=== PATIENT | female | born 1995 | race Caucasian/White ===

== ENCOUNTER 2018-10-30 11:12 | Inpatient (IN) ==
[~2018-10-30 11:12] MED LIST: *HR* Nalbuphine 10 MG/ML AMPUL IVP PRN; Famotidine 20 MG/2 ML VIAL IVP PRN; Metoclopramide 10 MG/2 ML VIAL IVP PRN; Naloxone 0.4 MG/ML INJ IVP PRN; Ondansetron 4 MG/2 ML VIAL IVP PRN
[2018-10-30] MEDS ORDERED: Ringers Solution, Lactated 1,000 ML IVC SCH (11:15)
[2018-10-30] MEDS ORDERED: miSOPROStol 25 MCG TABLET PO ONE (11:30)
[2018-10-30 11:56] LABS: Basophils # 0.1 K/mcL (0.0-0.2); Basophils % 0.7 %; Eosinophils # 0.1 K/mcL (0.0-0.6); Hematocrit 36.7 % (35.3-44.9); Hemoglobin 12.2 g/dL (11.5-15.4); Immature Granulocytes % 1.9 % (0-4); Lymphocytes % 16.2 %; Mean Corpuscular HGB Conc 33.2 g/dL (31.6-35.5); Mean Corpuscular Hemoglobin 31.6 pg (28.0-33.3); Mean Corpuscular Volume 95.1 fL (83.0-100.0); Mean Platelet Volume 11.3 fL (9.4-12.4); Monocytes # 0.7 K/mcL (0.0-1.3); Monocytes % 5.3 %; Neutrophils # 9.4 K/mcL (1.6-8.9); Platelet Count 141 K/mcL (140-400); Red Blood Count 3.86 M/mcL (3.82-4.97); Red Cell Distribution Width 13.3 % (11.5-14.5); Segmented Neutrophils % 74.9 %; White Blood Count 12.5 K/mcL (4.3-11.1)
--- NOTE | 2018-10-30 11:57 | OB/GYN History & Physical ---
Date of Encounter: 10/30/18 Time of Encounter: 11:44 Assessment and Plan (1) 38 weeks gestation of Current visit: Yes Status: Acute Patient is admitted for delivery (2) SROM (spontaneous rupture of membranes) Current visit: Yes Status: Acute Admitted for Delivery POC discussed with patient and her Dr. Leary aware of POC and her conventional mortgage underwriter if needed History of Present Illness Chief complaint: SROM HPI: Ms. Lord is a 23 year old female @ 38w4d presents to labor and delivery with c/o SROM at 0900 this morning. Patient denies any contractions, LOF or VB. Patient receives care with Dr. Gregorio. Patient denies any complications with current . Patient reports GDM with last . Blood type: O Negative Rubella: Immune Hep B: nonreactive GBS: Negative Past Med Surg Social Fam HX - Past Medical History Source: patient Medical history: non-contributory Additional medical history: previous miscarriage Psychiatric history: depression - Past Surgical History Additional surgical history: tubes in ears - Social History Smoking Status: Never smoker Smokeless Tobacco Status: No Alcohol use: none Drug use: none Current living situation: Home - Independent Activity Level: Independent ambulation Recent Out of Country Travel Within the Last 8 Weeks: No Exposure or Possible Exposure to Illness During Travel: No Obstetrical History - Pregnancies : 4 Para: 1 Term: 1 : 0 Ab's: 2 Livin Medications and Allergies Acetaminophen [Tylenol] 325 mg PO Q6HR 03/21/18 [History] Pnv#75/Iron Fum/FA/Om3/Dha/Epa [Daily Combo Pack] 1 each PO DAILY 03/21/18 [History] Allergy/AdvReac Type Severity Reaction Status Date / Time vancomycin AdvReac Swelling Verified 03/21/18 08:43 of Lip/Tongue/Throat Review of System OB - Constitutional Constitutional ROS IM: no chills, no fever(s), no headache(s) - Cardiovascular Cardiovascular: no chest pain, no edema, no lightheadedness, no pedal edema, no rapid heart rate, no syncope - Respiratory Respiratory: no cough, no dyspnea - Gastrointestinal Gastrointestinal: no abdominal pain, no constipation, no cramping, no diarrhea, no heartburn, no nausea, no vomiting - Genitourinary Genitourinary: vaginal discharge (per HPI, Large gush at 0900), no abnormal vaginal bleeding, no dysuria, no flank pain, no urinary hesitancy, no urinary incontinence, no vaginal dryness, no vaginal odor, no vaginal pruritis Exam - Constitutional Constitutional: well developed, well nourished, no acute distress, average body habitus - HEENT HEENT: Normocephaly, Mucus Membranes Moist - Neck Neck exam: full ROM, supple - Lungs Respiratory exam: CTAB - Cardiovascular Cardiovascular exam: RRR, +S1, +S2 - Abdomen Abdomen: Present: bowel sounds normal, gravid, non tender - Extremities Extremities exam: full ROM, normal capillary refill, normal inspection Deep Tendon Reflex Grade: 2+ Normal - Cervix Dilation: 1 (1.5 per RN) Effacement: 70 Station: -2 - Uterus Uterus exam: Present: normal size, normal contour - Anus/Rectum Anus/Rectum: Present: normal perianal skin - Comments Comments: FHR 135 bpm moderate variability +15x15 accels no decels noted. Irregular contractions noted. Cat. 1 tracing Results All other labs normal. - VTE Reasons for not Prescribing Prophylaxis: Treatment not Indicated - Low risk for VTE
[2018-10-30 12:05] LABS: Amphetamine Screen,Urine Negative ng/mL (Cutoff=1000); Barbiturate Screen,Urine Negative ng/mL (Cutoff=200); Benzodiazepines Screen,Urine Negative ng/mL (Cutoff=200); Cannabinoid Screen,Urine Negative ng/mL (Cutoff = 50); Cocaine Screen,Urine Negative ng/mL (Cutoff= 300); Opiate Screen,Urine Negative ng/mL (Cutoff=300); Phencyclidine Screen,Urine Negative ng/mL (Cutoff=25)
[2018-10-30 15:18] LABS: Creatinine,Urine 79 mg/dL
[2018-10-30 15:21] LABS: Alanine Aminotransferase 12 Units/L (7-52); Aspartate Amino Transferase 15 Units/L (13-39); BUN/Creatinine Ratio 14 (6-26); Blood Urea Nitrogen 11 mg/dL (6-20); Lactate Dehydrogenase 198 Units/L (140-271); Uric Acid 4.5 mg/dL (2.3-7.6); eGFR For African Americans > 60 (> 60); eGFR For Non-African Americans > 60 (> 60)
--- NOTE | 2018-10-30 16:40 | OB Labor Progress Note ---
Date of Encounter: 10/30/18 Time of Encounter: 16:37 Labor Progress Note - Subjective Subjective: Patient doing well. Patient reports contractions are getting stronger and closer together. - Cervix Cervix: 5/90/-1 - Heart Tones Heart Tones: 125 bpm moderate variability +15x15 accels no decels noted. Cat. [address] - [place]: 3-4 min apart - Interventions Interventions: SVE, discussed POC with patient. - Plan Physician notified: No Plan: Continue labor management Patient may have Nubain or epidural when desires
[2018-10-30] MEDS ORDERED: Oxytocin 20 units/ LR 1000 mL 20 UNIT/1,000 ML BAG IVC ONE ×2 (18:41→21:36)
[2018-10-30] MEDS ORDERED: Lidocaine 1% 20 ML MDV INFILT PRN (18:48)
[2018-10-30] MEDS ORDERED: Epidural Premix (fent/bupiv) 0 ML EP ONE (18:59)
[2018-10-30] MEDS ORDERED: *HR* FentaNYL (PF) 100 MCG/2 ML VIAL ONE (19:00)
[2018-10-30] MEDS ORDERED: Ropivacaine/PF 0.2% 20 ML VIAL EP ONE (19:21)
[2018-10-30] MEDS ORDERED: EPHEDrine 50 MG/ML VIAL IVP PRN (19:21)
[2018-10-30] MEDS ORDERED: *HR* FentaNYL (PF) 100 MCG/2 ML VIAL EP ONE (19:21)
[2018-10-30] MEDS ORDERED: Ondansetron 4 MG/2 ML VIAL IVP PRN (19:21)
[2018-10-30] MEDS ORDERED: Naloxone 0.4 MG/ML INJ IVP PRN (19:21)
--- NOTE | 2018-10-30 19:25 | Anesthesia Evaluation PreOp ---
Date of Encounter: 10/30/18 Time of Encounter: 16:57 - Past History Planned Operation: RODNEY Cardiac History: Denies any Significant Hx Pulmonary History: Denies Any Significant HX MANUFACTURING ENGINEER CHIEF History: Denies Any Significant HX Other Medical History: Denies Any Significant HX Anesthesia History: No Prior Anesthetic Complications, Past Anesthesia (Ear tube placement, age 7) : Yes Alcohol Use: none Drug use: none Medications and Allergies Pnv#75/Iron Fum/FA/Om3/Dha/Epa [Daily Combo Pack] 1 each PO DAILY 03/21/18 [History] Loratadine [Claritin] 10 mg PO DAILY 10/30/18 [History] Allergy/AdvReac Type Severity Reaction Status Date / Time vancomycin AdvReac Swelling Verified 03/21/18 08:43 of Lip/Tongue/Throat - Meds/Allergy Pre-op Review Medications Reviewed: Yes Allergies Reviewed: Yes Beta Blockers on Current Med List: No Anesthesia Results - Labs 10/30/18 11:35 10/30/18 11:35 Anesthesia Exam BP 150/62 P 99 R 22 T98.3 Height: 5'4" Weight: 102.3kg NPO (# of Hours): 12 Pain Scale: 9 Pain Scale Used: Numeric (1 - 10) - HEENT Pupil (Motor): Pupils equal Mallampati: II Teeth: Normal Oral Opening: Greater than 3 - MANUFACTURING ENGINEER CHIEF LOC: Oriented MANUFACTURING ENGINEER CHIEF Motor: Normal RUE, Normal LUE, Normal RLE, Normal LLE, Normal Face MANUFACTURING ENGINEER CHIEF Sensory: Normal: RUE, LUE, RLE, LLE, Face - Cardiac Rhythm: Regular Murmur: None JVD: No Carotid Bruit: No - Pulmonary Breath Sounds: bilateral Clear Respiratory Effort: Symmetrical Anesthesia Assess/Plan ASA Score: 2 Level of consciousness: Cooperative, Oriented, Tranquil Anesthetic Plan: Epidural Autologous Blood: No Monitoring Plan: Standard Monitors Recovery Plan: Other
[2018-10-30] MEDS ORDERED: Epidural Premix (fent/bupiv) 110 ML EP SCH (19:30)
--- NOTE | 2018-10-30 19:33 | Anesthesia Procedures ---
Date of Encounter: 10/30/18 Time of Encounter: 17:00 Procedures: Anesthesia - Epidural/Spinal Patient ID/Chart reviewed: Yes Patient examined: Yes OB Eval: Gestational age: 38.4 OB Eval: : 4 OB Eval: Hx Para: 1 OB Eval: Dilated at (cm): 8 OB Eval: Contractions: Non-stressed pattern Consent Obtained: Yes Supplemental Oxygen: None/Room Air Site Prep: Aseptic Technique, Sterile prep and drape, Povidone-Iodine 1% Patient position: upright Local Anesthetic: Lidocaine 1% Amount of Local Anesthetic used: 3 Touhy Needle Gauge: 18 Touhy Needle Depth (cm): 7 Catheter Depth at Skin (cm): 14 Test Dose (1.5% Lido + Epi): Volume given (mls): 3 Test Dose Result: Negative Loading Dose: Fentanyl (mcg): 100 Loading Dose: Other: Ropivicaine 0.2% 5ml, NS 3ml Loading Dose Administered: Thru Catheter Infusion Med: 0.125% Bupivacaine w/ 2 mcg/ml Fentanyl Infusion Rate (mls/hr): [address]: Tegaderm, Tape Interspace Used: L3-L4 Loss of Resistance (LUCINDA): Yes Blood: No CSF: No Paresthesia: No Procedure: RODNEY placed 1st pass in upright position. LUCINDA achieved with normal saline. Catheter threaded with ease to 14cm. Bolus administered, and patient stated "baby is coming". Pt laid supine and delivered baby per [place] cannon. Pt vital signs stable. Baby delivered with stable vital signs. Vitals + FHT's: 1902 BP 146/87 P 78 R 22 1910 BP 146/86 P 79 R 20 FHT 120 on delivery
--- NOTE | 2018-10-30 19:51 | OB/GYN Procedure Note ---
Delivery - Delivery Date: 10/30/18 Provider: Tiffany Pantoja Intrapartum events: none Delivery induction: none Delivery augmentation: cytotec Delivery monitor: external FHT, external uterine Anesthesia: epidural (pt delivered right after bolus) Quantitated Blood Loss: 50 - (s) Infant A Infant Delivery Date: 10/30/18 Delivery Time: 19:12 Presentation: vertex Position: NEIDA Route of delivery: Gender: Female Viability: Viable Pounds: 7 Ounces: 12 at 1 minute: 7 at 5 mins: 9 Shoulder Dystocia: not encountered Specimens collected: cord blood Placenta: spontaneous Cord: nuchal cord (x1), 3 umbilical vessels, delivered through nuchal - Repair Episiotomy: none Laceration Description: None - Complications Delivery complications: none - Disposition Mom disposition: stable in LDR disposition: stable in LDR - Comments Comments: Called to LDR. Patient sitting up for epidural placement and states "baby is coming" patient was laid down and the infant was . Under maternal effort patient delivered spontaneously over an intact perineum. A tight nuchal was noted and delivered through it. No meconium or shoulder dystocia was encountered. Infant was placed on maternal abdomen. Cord was clamped and cut after pulsations ceased. Cord blood was collected. remained skin to skin. Placenta delivered spontaneously and intact. EBL 50cc, Apgars 7/9. Pericare provided. All counts correct. Both Mother and infant stable in LDR for 2 hour recovery.
[2018-10-30] MEDS ORDERED: Oxytocin 20 units/ LR 1000 mL 20 UNIT/1,000 ML BAG IVC SCH (22:02)
[2018-10-30] MEDS ORDERED: Benzocaine/Menthol 56 GM AEROSOL SPRAY TP PRN (22:02)
[2018-10-30] MEDS ORDERED: Rho Immune Globulin 1,500 UNIT SYRINGE IM PRN (22:02)
[2018-10-30] MEDS ORDERED: Lanolin 7 G OINT...G. TP PRN (22:02)
[2018-10-30] MEDS ORDERED: Acetaminophen 325 MG TABLET PO PRN (22:02)
[2018-10-31] MEDS: Ibuprofen 600 MG TABLET PO PRN ×2 (06:56→15:06)
[2018-10-31 07:59] VITALS: BP 121/77
[2018-10-31] MEDS ORDERED: Prenatal Vit/FA 1 EACH TABLET PO SCH (09:00)
--- NOTE | 2018-10-31 11:29 | Discharge Summary ---
Date of Encounter: 10/31/18 Time of Encounter: 10:57 - Discharge Diagnosis (1) Vaginal delivery Priority: Primary Status: Acute Comments: Patient meeting day one milestones. Pain well-controlled with prescribed medications. Voiding without difficulty, tolerating regular diet, bleeding light. No bowel movement yet. Anticipate discharge tonight (2) Breast feeding status of mother Priority: Secondary Status: Acute Comments: support as needed. Patient states she already has a breast pump - Discharge Medications Prescriptions: New Acetaminophen [Tylenol] 650 mg PO Q6H PRN tablet PRN Reason: Mild Pain Ibuprofen [Motrin] 600 mg PO Q6H PRN #60 tablet PRN Reason: Cramping Benzocaine/Menthol [place] [Dermoplast [place]] 1 appl TP QID PRN aerosol PRN Reason: See Comments Docusate [Colace] 100 mg PO BID capsule Lanolin [Lansinoh] 1 appl TP TID PRN oint...g. PRN Reason: Sore Nipples Continued Pnv#75/Iron Fum/FA/Om3/Dha/Epa [Daily Combo Pack] 1 each PO DAILY Loratadine [Claritin] 10 mg PO DAILY Home Medications: Pnv#75/Iron Fum/FA/Om3/Dha/Epa [Daily Combo Pack] 1 each PO DAILY 03/21/18 [History] Loratadine [Claritin] 10 mg PO DAILY 10/30/18 [History] Acetaminophen [Tylenol] 650 mg PO Q6H PRN tablet 10/31/18 [Rx] Benzocaine/Menthol [place] [Dermoplast [place]] 1 appl TP QID PRN aerosol 10/31/18 [Rx] Docusate [Colace] 100 mg PO BID capsule 10/31/18 [Rx] Ibuprofen [Motrin] 600 mg PO Q6H PRN #60 tablet 10/31/18 [Rx] Lanolin [Lansinoh] 1 appl TP TID PRN oint...g. 10/31/18 [Rx] Allergies/Adverse Reactions: Allergy/AdvReac Type Severity Reaction Status Date / Time vancomycin AdvReac Swelling Verified 03/21/18 08:43 of Lip/Tongue/Throat Data Procedures and tests throughout hospitalization: Laboratory Tests 10/30/18 10/30/18 10/30/18 11:35 11:35 11:35 WBC 12.5 H RBC 3.86 Hgb 12.2 Hct 36.7 MCV 95.1 MCH 31.6 MCHC 33.2 RDW 13.3 Plt Count 141 MPV 11.3 Immature Gran % 1.9 Seg Neutrophils % 74.9 Lymphocytes % 16.2 Monocytes % 5.3 Eosinophils % 1.0 Basophils % 0.7 Neutrophils # 9.4 H Lymphocytes # 2.0 Monocytes # 0.7 Eosinophils # 0.1 Basophils # 0.1 BUN 11 Creatinine 0.77 Est GFR ( Amer) > 60 Est GFR (Non-Af Amer) > 60 BUN/Creatinine Ratio 14 Uric Acid 4.5 AST 15 ALT 12 Lactate Dehydrogenase 198 Urine Creatinine 79 Protein/Creatinin Ratio 0.30 H Urine Total Protein 24 H Urine Opiates Screen Negative Ur Buprenorphine Scrn Negative Ur Barbiturates Screen Negative Ur Phencyclidine Scrn Negative Ur Amphetamines Screen Negative U Benzodiazepines Scrn Negative Urine Cocaine Screen Negative U Marijuana (THC) Screen Negative Ur Drug Screen Interp See Below Screen Baby's Blood Type Mother's Blood Type Rhogam Indicated Rhogam Req for Mother 10/30/18 19:45 WBC RBC Hgb Hct MCV MCH MCHC RDW Plt Count MPV Immature Gran % Seg Neutrophils % Lymphocytes % Monocytes % Eosinophils % Basophils % Neutrophils # Lymphocytes # Monocytes # Eosinophils # Basophils # BUN Creatinine Est GFR ( Amer) Est GFR (Non-Af Amer) BUN/Creatinine Ratio Uric Acid AST ALT Lactate Dehydrogenase Urine Creatinine Protein/Creatinin Ratio Urine Total Protein Urine Opiates Screen Ur Buprenorphine Scrn Ur Barbiturates Screen Ur Phencyclidine Scrn Ur Amphetamines Screen U Benzodiazepines Scrn Urine Cocaine Screen U Marijuana (THC) Screen Ur Drug Screen Interp Screen NEGATIVE Baby's Blood Type A RH POSITIVE Mother's Blood Type O RH NEGATIVE Rhogam Indicated YES Rhogam Req for Mother 1 Labs on day of discharge: Labs from last 24 hours 10/30/18 10/30/18 10/30/18 19:45 11:35 11:35 WBC 12.5 H RBC 3.86 Hgb 12.2 Hct 36.7 MCV 95.1 MCH 31.6 MCHC 33.2 RDW 13.3 Plt Count 141 MPV 11.3 Immature Gran % 1.9 Seg Neutrophils % 74.9 Lymphocytes % 16.2 Monocytes % 5.3 Eosinophils % 1.0 Basophils % 0.7 Neutrophils # 9.4 H Lymphocytes # 2.0 Monocytes # 0.7 Eosinophils # 0.1 Basophils # 0.1 BUN 11 Creatinine 0.77 Est GFR ( Amer) > 60 Est GFR (Non-Af Amer) > 60 BUN/Creatinine Ratio 14 Uric Acid 4.5 AST 15 ALT 12 Lactate Dehydrogenase 198 Urine Creatinine Protein/Creatinin Ratio Urine Total Protein Urine Opiates Screen Ur Buprenorphine Scrn Ur Barbiturates Screen Ur Phencyclidine Scrn Ur Amphetamines Screen U Benzodiazepines Scrn Urine Cocaine Screen U Marijuana (THC) Screen Ur Drug Screen Interp Screen NEGATIVE Baby's Blood Type A RH POSITIVE Mother's Blood Type O RH NEGATIVE Rhogam Indicated YES Rhogam Req for Mother 1 10/30/18 11:35 WBC RBC Hgb Hct MCV MCH MCHC RDW Plt Count MPV Immature Gran % Seg Neutrophils % Lymphocytes % Monocytes % Eosinophils % Basophils % Neutrophils # Lymphocytes # Monocytes # Eosinophils # Basophils # BUN Creatinine Est GFR ( Amer) Est GFR (Non-Af Amer) BUN/Creatinine Ratio Uric Acid AST ALT Lactate Dehydrogenase Urine Creatinine 79 Protein/Creatinin Ratio 0.30 H Urine Total Protein 24 H Urine Opiates Screen Negative Ur Buprenorphine Scrn Negative Ur Barbiturates Screen Negative Ur Phencyclidine Scrn Negative Ur Amphetamines Screen Negative U Benzodiazepines Scrn Negative Urine Cocaine Screen Negative U Marijuana (THC) Screen Negative Ur Drug Screen Interp See Below Screen Baby's Blood Type Mother's Blood Type Rhogam Indicated Rhogam Req for Mother Date of admission: 10/30/18 11:12 Primary care physician: Mac Miranda MD Consults: 10/30/18 22:02 Consult to [employer] [CONS] Routine Comment: Vaginal delivery, consult needed Discharging clinician: Eileen Phillips Anticipated date of discharge: 10/31/18 - Patient Status Disposition: Home, Self-Care Condition: Good Functional capacity at discharge: independent ambulation Overall status at discharge: patient is progressing back to baseline - Discharge Instructions Follow Up With: Mac Miranda MD [Primary Care Provider] - Bright Gregorio MD [Partnered Physician] - - Diet and Activity Activity: resume usual activities as tolerated Diet: regular diet Hospital Course Episiotomy: none Laceration: none Other procedures: none complications: none Discharge diagnosis: IUP at term delivered baby: female Hospital course: Delivery Date: 10/30/18 Provider: Tiffany Pantoja Intrapartum events: none Delivery induction: none Delivery augmentation: cytotec Delivery monitor: external FHT, external uterine Anesthesia: epidural (pt delivered right after bolus) Quantitated Blood Loss: 50 - Infant (s) Infant A Infant Delivery Date: 10/30/18 Infant Delivery Time: 19:12 Presentation: vertex Position: NEIDA Route of delivery: Gender: Female Viability: Viable Pounds: 7 Ounces: 12 at 1 minute: 7 at 5 mins: 9 Shoulder Dystocia: not encountered Specimens collected: cord blood Placenta: spontaneous Cord: nuchal cord (x1), 3 umbilical vessels, delivered through nuchal - Repair Episiotomy: none Laceration Description: None - Complications Delivery complications: none - Disposition Mom disposition: stable in LDR [place] disposition: stable in LDR - Comments Comments: Called to LDR. Patient sitting up for epidural placement and states "baby is coming" patient was laid down and the was . Under maternal effort patient delivered spontaneously over an intact perineum. A tight nuchal was noted and infant delivered through it. No meconium or shoulder dystocia was encountered. was placed on maternal abdomen. Cord was clamped and cut aft er pulsations ceased. Cord blood was collected. Infant remained skin to skin. Placenta delivered spontaneously and intact. EBL 50cc, Apgars 7/9. Pericare provided. All counts correct. Both Mother and infant stable in LDR for 2 hour recovery. Time Attestation: Total time spent providing and/or coordinating discharge services: Time Spent: Less than 30 minutes Exam - Constitutional Vitals: Temp Pulse Resp BP Pulse Ox 97.4 F L 87 14 121/77 97 10/31/18 07:57 10/31/18 07:57 10/31/18 07:57 10/31/18 07:57 10/31/18 07:57 General appearance IM: A&O X 3, no acute distress - Respiratory Respiratory exam: Present: CTAB. Absent: respiratory distress - Cardiovascular Cardiovascular exam IM: Present: RRR, +S1, +S2. Absent: irregular rhythm - GI/Abdominal GI/Abdominal exam IM: normal bowel sounds, soft - Rectal Rectal exam: deferred - External exam: normal external exam Uterine Tone: Firm Uterus Position: At Umbilicus, Midline - Extremities Exam Extremities exam IM: Present: full ROM, normal capillary refill, normal inspection. Absent: calf tenderness - Neurological Exam Neurological exam: alert, normal gait, oriented X3
== END 2018-10-31 16:43 | disposition home or self-care (01) | DRG 807 ==
LOC: 1NENULAB → 1NENUOBS 22:23
PROVIDERS: ADMIT Advanced Practice Midwife; ATTEND Advanced Practice Midwife